=== PATIENT | female | born 1990 | race Caucasian/White ===

== ENCOUNTER 2024-12-04 20:33 | Emergency (ER) | payer BC ==
[2024-12-04 21:01] VITALS: PULSE 104
[2024-12-04 21:12] LABS: BASOPHILS ABSOLUTE AUTO 0.1 x10-3/uL (0.0-0.1); BASOPHILS PERCENT AUTO 1.1 % (0.2-1.5); EOSINOPHILS ABSOLUTE AUTO 0.1 x10-3/uL (0.0-0.8); EOSINOPHILS PERCENT AUTO 0.9 % (0.6-8.1); LYMPHOCYTES ABSOLUTE AUTO 1.7 x10-3/uL (1.0-4.4); LYMPHOCYTES PERCENT AUTO 20.4 % (18.4-52.1); MEAN PLATELET VOLUME 9.2 fL (7.1-12.4); MONOCYTES ABSOLUTE AUTO 0.8 x10-3/uL (0.3-1.0); MONOCYTES PERCENT AUTO 9.4 % (4.4-15.7); NEUTROPHILS ABSOLUTE AUTO 5.7 x10-3/uL (1.5-6.3); NEUTROPHILS PERCENT AUTO 68.2 % (30.8-76.2); PLATELET COUNT,PLT 233 x10(3)uL (151-488); RED BLOOD CELL COUNT 5.25 x10(6)uL (3.60-5.20); RED CELL DISTRIBUTION WIDTH 13.3 % (12.3-16.5); WHITE BLOOD CELL COUNT,WBC 8.4 x10-3/uL (3.0-10.3)
[2024-12-04 21:28] LABS: A/G RATIO 1.2; ALANINE AMINOTRANSFERASE,ALT 18 U/L (12-36); ASPARTATE AMNIOTRANSFERASE,AST 17 IU/L (5-25); BILIRUBIN TOTAL 0.4 mg/dL (0.1-1.3); BLOOD UREA NITROGEN,BUN 12 mg/dL (7-18); CARBON DIOXIDE,CO2 27 mmol/L (21-32); CHLORIDE,CL 102 mmol/L (100-110); CREATININE 0.9 mg/dL (0.55-1.02); EST CRCL DRUG DOSING (CG) 79.25 mL/min; ESTIMATED GFR 86 mL/min (>60); GLUCOSE RANDOM 105 mg/dL (80-116); POTASSIUM,K 3.5 mmol/L (3.5-5.3); PROTEIN TOTAL,TP 7.6 g/dL (6.0-8.0); SODIUM,NA 136 mmol/L (135-145)
[2024-12-04 22:01] VITALS: BP 104/71
== END 2024-12-04 21:45 | disposition home or self-care (01) ==
LOC: FB.ED 20:33
DX: R07.89 Other chest pain (principal); Z88.8 Allergy status to other drugs, medicaments and biological substances
CPT/HCPCS: 36415; 71046; 80053; 84484; 85025; 85379; 93005; 99285